=== PATIENT | male | born 1965 | race Two or more races ===

== ENCOUNTER → 2022-03-10 | Emergency (ER) | payer OTHER ==
[~2022-03-10] VITALS: Ht 172.7 cm; Wt 69.4 kg
== END | disposition home or self-care (01) ==
LOC: ER 10:36
DX: M25.512 Pain in left shoulder (principal); M89.8X1 Other specified disorders of bone, shoulder

== ENCOUNTER → 2022-03-12 | Outpatient (CLI) | payer OTHER | END | disposition home or self-care (01) | LOC: SONOGRAMA 09:28 | PROVIDERS: ATTEND General Practice | DX: M62.838 Other muscle spasm (principal) ==